=== PATIENT | male | born 1955 | race Caucasian/White ===

== ENCOUNTER 2021-02-28 07:30 | Observation (INO) | payer MEDICARE, OTHER ==
[2021-02-24 09:25] LABS: BASOPHILS % 0.5 % (0.0-1.0); EOSINOPHILS # (AUTO) 0.2 (0.0-0.4); EOSINOPHILS % 3.3 % (0.0-6.0); HEMATOCRIT 37.7 % (38.2-49.6); HEMOGLOBIN 12.4 g/dL (14.0-18.0); LYMPHOCYTES # (AUTO) 1.7 (1.0-3.2); MEAN CORPUSCULAR HEMOGLOBIN 29.1 pg (28-32); MEAN CORPUSCULAR HGB CONC 32.9 g/dL (31-35); MEAN CORPUSCULAR VOLUME 88.5 fL (81-99); MONOCYTES # (AUTO) 0.6 (0.2-0.8); MONOCYTES % 10.3 % (4.4-11.3); NEUTROPHILS # (AUTO) 3.3 (2.1-6.9); NEUTROPHILS % 56.7 % (38.7-80.0); PLATELET COUNT 196 x10e3/uL (140-360); RED BLOOD COUNT 4.26 x10e6/uL (4.3-5.7)
[2021-02-24 09:40] LABS: ANION GAP 13.5 mmol/L (8-16); CALCIUM 9.2 mg/dL (8.4-10.2); CREATININE, SERUM 1.32 mg/dL (0.72-1.25); POTASSIUM 3.5 mmol/L (3.5-5.1)
[~2021-02-28] VITALS: Ht 175.3 cm; Wt 77.1 kg
[~2021-02-28 07:30] MED LIST: CARBIDOPA-LEVO1 EAC2 PO; CYCLOBENZAPRINE PO; MELOXICAM7.5 MG PO; MULTI-VITAMIN1 EACH PO; RAPAFLO8 MG PO; ROPINIROLE HCL1 MG PO; TORSEMIDE20 MG PO; VITAMIN D350000 UNIT PO
[2021-02-28] MEDS ORDERED: BUPIVACAINE 0.5%/EPI 30 ML SDV INJ ONE (12:49)
[2021-02-28] MEDS ORDERED: ACETAMINOPHEN 1000 MG/100 ML 100 ML IV ONE (13:09)
[2021-02-28] MEDS ORDERED: SEVOFLURANE INHAL SOLN 250 ML PEN BTL ONE (13:35)
[2021-02-28] MEDS ORDERED: LIDOCAINE HCL 2% LOCAL INJ 5 ML SDV VIAL INJ ONE (13:35)
[2021-02-28] MEDS ORDERED: PROPOFOL IV EMULSION 10 MG/ML 20 ML VIAL ONE (13:35)
[2021-02-28] MEDS ORDERED: DEXAMETHASONE SOD PHOS INJ 4 MG/ML VIAL ONE (13:35)
[2021-02-28] MEDS ORDERED: ONDANSETRON HCL INJ 2MG/ML 2ML 2 MG/ML VIAL ONE (13:35)
[2021-02-28] MEDS ORDERED: LIDOCAINE HCL 2% JELLY 5 ML TUBE ONE (13:35)
[2021-02-28] MEDS ORDERED: CEFAZOLIN SOD 1 GM VIAL ONE (13:35)
[2021-02-28] MEDS ORDERED: NEOSTIGMINE 1 MG/ML 10ML VIAL ONE ×2 (13:35→16:15)
[2021-02-28] MEDS ORDERED: ROCURONIUM BROMIDE 10 MG/ML 5ML VIAL IV ONE (13:35)
[2021-02-28] MEDS ORDERED: GLYCOPYRROLATE INJ 0.2 MG/ML VIAL ONE (13:35)
[2021-02-28] MEDS ORDERED: MUPIROCIN 2% OINT 22 GM TUBE ONE (16:15)
[2021-02-28] MEDS ORDERED: HYDROCODONE/APAP 7.5MG-325MG 1 EA TAB PO PRN (16:30)
[2021-02-28] MEDS ORDERED: HYDROMORPHONE 1MG/1ML INJ IV PRN (16:30)
[2021-02-28] MEDS ORDERED: ONDANSETRON HCL INJ 2MG/ML 2ML 2 MG/ML VIAL IV PRN (16:30)
[2021-02-28] MEDS ORDERED: FENTANYL CITRATE/PF 100MCG/2 ML INJ ONE ×2 (17:17→19:11)
[2021-02-28 17:36] VITALS: BP 129/72
[2021-02-28 17:41] VITALS: BP 129/72
[2021-02-28] MEDS: CEFAZOLIN SOD 1 GM/NS 50ML 50 ML IV SCH ×2 (18:30→23:55)
[2021-02-28] MEDS ORDERED: MIDAZOLAM HCL 2 MG/2 ML VIAL ONE (19:11)
[2021-02-28 19:25] VITALS: BP 105/64
[2021-02-28 22:31] VITALS: BP 105/64
[2021-03-01 00:28] VITALS: BP 118/72
[2021-03-01] MEDS: CEFAZOLIN SOD 1 GM/NS 50ML 50 ML IV SCH ×2 (05:31→11:31)
[2021-03-01 05:34] VITALS: BP 112/69
[2021-03-01 07:58] VITALS: BP 101/67
[2021-03-01 11:57] VITALS: BP 103/55
== END 2021-03-01 17:35 | disposition home or self-care (01) ==
LOC: OR 07:30 → PACU V 16:30 → MED/SURG 18:09
PROVIDERS: ADMIT Surgery; ATTEND Surgery
DX: K43.2 Incisional hernia without obstruction or gangrene (principal); Z98.84 Bariatric surgery status; G20 Parkinson's disease; Z20.822 Contact with and (suspected) exposure to COVID-19
CPT/HCPCS: 36415; 49565; 49568; 71046; 80048; 85025; 88302; 93005; C1781; G0378 ×2; J0131; J0690 ×3; J1100; J2001 ×2; J2405; J2704; J2710; J3010; U0002; 88304; J2250

== ENCOUNTER → 2022-03-24 | Outpatient (CLI) | payer MEDICARE, OTHER | LOC: CT 13:23 | PROVIDERS: ATTEND Family Medicine | DX: S09.90XA Unspecified injury of head, initial encounter (principal); S00.10XA Contusion of unspecified eyelid and periocular area, initial encounter; G44.319 Acute post-traumatic headache, not intractable | CPT/HCPCS: 70450 ==